=== PATIENT | male | born 1960 | race Caucasian/White ===

== ENCOUNTER 2019-03-14 16:50 | Emergency (ER) | payer OTHER | END 2019-03-14 23:28 | disposition home or self-care (01) | LOC: JER 16:50 ==

== ENCOUNTER 2022-04-08 10:00 | Emergency (ER) | payer OTHER ==
[2022-04-08 10:17] VITALS: BP 131/87; PULSE 93; RESP 20; TEMP 99.3; BMI 31.1
== END 2022-04-08 11:04 | disposition home or self-care (01) ==
LOC: JER 10:00
DX: U07.1 COVID-19 (principal)
CPT/HCPCS: 99282-25

== ENCOUNTER 2022-11-13 07:06 | Emergency (ER) | payer OTHER ==
[2022-11-13 07:17] VITALS: BP 155/90; PULSE 60; RESP 18; TEMP 97.6; BMI 23.7
[2022-11-13] MEDS ORDERED: ACETAMINOPHEN 500 MG TABLET (FP) PO ONE (08:12)
[2022-11-13] MEDS ORDERED: ACETAMINOPHEN 500 MG TABLET (FP) ONE (08:14)
== END 2022-11-13 09:26 | disposition home or self-care (01) ==
LOC: JER 07:06
DX: S16.1XXA Strain of muscle, fascia and tendon at neck level, initial encounter (principal); R07.9 Chest pain, unspecified; V89.2XXA Person injured in unspecified motor-vehicle accident, traffic, initial encounter
CPT/HCPCS: 71046-TC-FY; 99284-25